=== PATIENT | female | born 1930 | race Caucasian/White ===

== ENCOUNTER 2017-03-15 18:37 | Observation (INO) | payer OTHER ==
--- NOTE | 2017-03-15 18:57 | PDOC ---
History of Present Illness <Clara Espinal - Last Filed: 03/15/17 23:12> - History of Present Illness Initial Comments: 03/15/17 23:51 Patient is an 86 year old female from [facility] with significant medical hx of multiple myeloma, paroxysmal AFib, GERD, CKD, and HTN who has been sent to the ED from [place] for blood transfusion. Patient was recently diagnosed with a left pathological fx, which she was operated on and found to have multiple myeloma. She was then transferred to [facility] for rehab and was noted to have a dropping Hb from 6.8 to 6.2. Per [place] papers, the patient was also complaining of generalized weakness. Denies any bleeding, melena, nausea, vomiting, constipation, or dysuria. <Deanna Perez - Last Filed: 03/16/17 00:01> - General Chief Complaint: Revisit, Lab Variance Stated Complaint: ABNORMAL BLOOD WORK Time Seen by Provider: 03/15/17 18:50 Past History - Past Medical History Anemia: Yes Cardiac Disorders: Yes (multiple myelomia praxoysmal a fib) GI Disorders: Yes (gerd) Disorders: Yes (chronic kidney disease) HTN: Yes - Psycho/Social/Smoking Cessation Hx Suicidal Ideation: No Smoking History: Never smoked Have you smoked in the past 12 months: No Information on smoking cessation initiated: No Hx Alcohol Use: No Drug/Substance Use Hx: No <Clara Espinal - Last Filed: 03/15/17 23:12> <Deanna Perez - Last Filed: 03/16/17 00:01> - Past Medical History Allergies/Adverse Reactions: Allergies Allergy/AdvReac Type Severity Reaction Status Date / Time No Known Allergies Allergy Verified 03/15/17 18:49 Home Medications: Ambulatory Orders Bisacodyl [Dulcolax -] 10 mg PO ONCE 03/15/17 Enoxaparin [Lovenox -] 40 mg SQ DAILY 03/15/17 Labetalol HCl [Normodyne -] 200 mg PO BID 03/15/17 Lidocaine 5% Patch [Lidoderm Patch -] 1 patch TP DAILY 03/15/17 Nystatin Ointment [Mycostatin Ointment -] 1 applic TP BID 03/15/17 Oxycodone HCl 10 mg PO Q4H 03/15/17 Oxycodone Sr [Oxycontin] 10 mg PO BID 03/15/17 Pantoprazole Sodium 40 mg PO DAILY 03/15/17 Sennosides [Senna] 8.6 mg PO HS 03/15/17 Silver Sulfadiazine 1% Top Cr [Silvadene -] 1 applic TP DAILY 03/15/17 Trazodone HCl 100 mg PO HS 03/15/17 Triamcinolone Acet 0.1% Cream [Aristocort] 0 gm TP BID 03/15/17 Review of Systems - Review of Systems Comments:: 03/15/17 23:54 CONSTITUTIONAL: Present: generalized weakness Absent: fever, chills, diaphoresis, malaise, loss of appetite HEENT: Absent: rhinorrhea, nasal congestion, throat pain, throat swelling, difficulty swallowing, mouth swelling, ear pain, eye pain, visual changes CARDIOVASCULAR: Absent: chest pain, syncope, palpitations, irregular heart rate, lightheadedness , peripheral edema RESPIRATORY: Absent: cough, shortness of breath, dyspnea with exertion, orthopnea, wheezing, stridor, hemoptysis GASTROINTESTINAL: Absent: abdominal pain, abdominal distension, nausea, vomiting, diarrhea, constipation, melena, hematochezia GENITOURINARY: Absent: dysuria, frequency, urgency, hesitancy, hematuria, flank pain, genital pain MUSCULOSKELETAL: Absent: myalgia, arthralgia, joint swelling SKIN: Absent: rash, itching, pallor HEMATOLOGIC/IMMUNOLOGIC: Absent: easy bleeding, easy bruising, lymphadenopathy, frequent infections ENDOCRINE: Absent: unexplained weight gain, unexplained weight loss, heat intolerance, cold intolerance NEUROLOGIC: Absent: headache, focal weakness or paresthesia, dizziness, unsteady gait, seizure, mental status changes, bladder or bowel incontinence. PSYCHIATRIC: Absent: anxiety, depression, suicidal or homicidal ideation, hallucinations <Deanna Perez - Last Filed: 03/16/17 00:01> *Physical Exam - Vital Signs Last Vital Signs Temp Pulse Resp BP Pulse Ox 98.9 F 88 20 100/52 97 03/15/17 18:49 03/15/17 18:49 03/15/17 18:49 03/15/17 18:49 03/15/17 18:49 <Clara Espinal - Last Filed: 03/15/17 23:12> - Vital Signs Last Vital Signs Temp Pulse Resp BP Pulse Ox 98 F 81 18 107/54 96 03/15/17 22:34 03/15/17 22:34 03/15/17 22:34 03/15/17 22:34 03/15/17 22:34 - Physical Exam Comments: 03/15/17 23:55 GENERAL: Well developed, well nourished. Awake and alert. No acute distress. HEENT: Normocephalic, atraumatic. PERRLA, EOMI. No conjunctival pallor. Sclera are non- icteric. Moist mucous membranes. Oropharynx is clear. NECK: Supple. Full ROM. No JVD. Carotid pulses 2+ and symmetric, without bruits. No thyromegaly. No lymphadenopathy. CARDIOVASCULAR: Regular rate and rhythm. No murmurs, rubs, or gallops. Distal pulses are 2+ and symmetric. PULMONARY: No evidence of respiratory distress. Lungs clear to auscultation bilaterally. No wheezing, rales or rhonchi. ABDOMINAL: Skinny abdomen. Soft. Non-tender. Non-distended. No rebound or guarding. No organomegaly. Normoactive bowel sounds. MUSCULOSKELETAL: Normal range of motion at all joints. No bony deformities or tenderness. No CVA tenderness. EXTREMITIES: Left hip incision. Minimal swelling to the left lower extremity but no pitting edema. No cyanosis. No clubbing. No calf tenderness. SKIN: Warm and dry. Normal capillary refill. No rashes. No jaundice. NEUROLOGICAL: Alert, awake, appropriate. Cranial nerves 2-12 intact. Normal speech. PSYCHIATRIC: Cooperative. Good eye contact. Appropriate mood and affect. <Deanna Perez - Last Filed: 03/16/17 00:01> Heart Score/ECG Review #1 03/16/17 00:00 Normal sinus rhythm at 85 bpm Normal ECG <Deanna Perez - Last Filed: 03/16/17 00:01> ED Treatment Course - LABORATORY CBC & Chemistry Diagram: 03/15/17 19:34 03/15/17 19:34 <Clara Espinal - Last Filed: 03/15/17 23:12> - LABORATORY CBC & Chemistry Diagram: 03/15/17 19:34 03/15/17 19:34 - ADDITIONAL ORDERS Additional order review: Laboratory Results 03/15/17 03/15/17 03/15/17 20:50 19:34 19:34 INR 1.09 Sodium Potassium Chloride Carbon Dioxide Anion Gap BUN Creatinine Creat Clearance w eGFR Random Glucose Calcium Total Bilirubin AST ALT Alkaline Phosphatase Creatine Kinase Troponin I Total Protein Albumin Blood Type A POSITIVE A POSITIVE Antibody Screen Negative Negative Crossmatch See Detail 03/15/17 03/15/17 19:34 19:34 INR Sodium 133 L Potassium 4.4 Chloride 97 L Carbon Dioxide 28 Anion Gap 8 BUN 36 H Creatinine 1.2 H Creat Clearance w eGFR 42.70 Random Glucose 133 H Calcium 8.9 Total Bilirubin 0.4 AST 67 H ALT 87 H Alkaline Phosphatase 334 H Creatine Kinase 39 Troponin I < 0.02 Total Protein 9.1 H Albumin 2.1 L Blood Type Antibody Screen Crossmatch 03/15/17 19:34 RBC 2.12 L MCV 91.0 MCHC 33.1 RDW 15.5 MPV 7.5 Neutrophils % 72.2 Lymphocytes % 16.8 Monocytes % 10.8 H Eosinophils % 0.0 Basophils % 0.2 - RADIOLOGY Radiograph Interpretation: 03/16/17 00:01 Chest X-Ray Impression: Cardiomegaly, mild congestion and bilateral pleural effusions. Reported By: Wally Montes MD <Deanna Perez - Last Filed: 03/16/17 00:01> Medical Decision Making - Medical Decision Making 03/15/17 23:08 86-year-old female was brought in by ambulance from [facility] for blood transfusion. Past medical history of hypertension, paroxysmal atrial fibrillation, chronic kidney disease, chronic low back pain History of present illness. She was recently diagnosed multiple myeloma found after she fell and had a left hip pathological fracture. 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 It was noted that she had progressively falling hemoglobin from this 6.8-6.2, and complain of generalized weakness but no distress. No nausea, no vomiting and no melena were appreciated. She currently is afebrile with stable vital signs. Her systolic blood pressure is between the 101 - 110 She has left leg edema. Surgical incisions are covered with dressing. Hemoglobin is 6.4. This patient has never been to our hospital have no prior labs on her for comparison I spoke with Dr. Rubén Lombardo and the patient will be admitted for blood transfusion of 2 units packed RBCs <Clara Espinal - Last Filed: 03/15/17 23:12> *DC/Admit/Observation/Transfer - Discharge Dispostion Admit: Yes <Clara Espinal - Last Filed: 03/15/17 23:12> - Attestations Scribe Attestion: 03/15/17 23:57 Documentation prepared by Deanna Perez, acting as medical assisting instructor for Clara Espinal MD. <Deanna Perez - Last Filed: 03/16/17 00:01> Diagnosis at time of Disposition: Anemia Qualifiers: Anemia type: unspecified type Qualified Code(s): D64.9 - Anemia, unspecified Multiple myeloma Qualifiers: Multiple myeloma remission status: not in remission Qualified Code(s): C90.00 - Multiple myeloma not having achieved remission Pathological fracture Qualifiers: Pathology associated with fracture: neoplastic disease Site of pathological fracture: hip Encounter type: sequela Laterality: left Qualified Code(s): M84.552S - Pathological fracture in neoplastic disease, left femur, sequela - Referrals
[2017-03-15 18:59] VITALS: BMI 22.6
[2017-03-15 19:55] LABS: INR 1.09 (0.82-1.09)
[2017-03-15 20:26] LABS: BASOPHIL 0.2 % (0-2.0); MCH 30.1 pg (25.7-33.7); MCHC 33.1 g/dl (32.0-36.0); MEAN PLT VOLUME 7.5 fl (7.5-11.1); NEUTROPHILS 72.2 % (42.8-82.8); PLATELET COUNT 282 K/MM3 (134-434); RDW 15.5 % (11.6-15.6); WHITE BLOOD COUNT 7.8 K/mm3 (4.0-10.0)
[2017-03-15 20:29] LABS: ALBUMIN 2.1 g/dl (3.4-5.0); BILIRUBIN,TOTAL 0.4 mg/dL (0.2-1.0); CALCIUM 8.9 mg/dL (8.5-10.1); COCKROFT - GAULT 32.3935; CREATININE 1.2 mg/dL (0.55-1.02); TOT PROT 9.1 g/dl (6.4-8.2)
[2017-03-15 20:33] LABS: TROPONIN I < 0.02 ng/ml (0.00-0.05)
[2017-03-16] MEDS ORDERED: morphine CARPU-JECT 2 MG/1 ML DISP.SYRIN IVPUSH ONE (04:22)
[2017-03-16] MEDS ORDERED: ONDANSETRON 4 MG/2 ML VIAL IVPUSH STA (04:22)
[2017-03-16] MEDS ORDERED: ONDANSETRON 4 MG/2 ML VIAL ONE (04:26)
[2017-03-16] MEDS ORDERED: morphine CARPU-JECT 2 MG/1 ML DISP.SYRIN ONE (04:26)
[2017-03-16] MEDS ORDERED: oxyCODONE HCL 5 MG TABLET PO PRN (08:35)
--- NOTE | 2017-03-16 08:37 | HP ---
Admitting History and Physical - Primary Care Physician PCP: Chris Pride - Admission Chief Complaint: anemia History of Present Illness: ER HISTORY - History of Present Illness Initial Comments: 03/15/17 23:51 Patient is an 86 year old female from [facility] with significant medical hx of multiple myeloma, paroxysmal AFib, GERD, CKD, and HTN who has been sent to the ED from [place] for blood transfusion. Patient was recently diagnosed with a left pathological fx, which she was operated on and found to have multiple myeloma. She was then transferred to [facility] for rehab and was noted to have a dropping Hb from 6.8 to 6.2. Per [place] papers, the patient was also complaining of generalized weakness. Denies any bleeding, melena, nausea, vomiting, constipation, or dysuria. Pt examined by me in ER s/p 2 units PRBc No complaints feels well no dizziness, lightheadedness, chest pain or palpitations History Source: Patient Limitations to Obtaining History: No Limitations - Past Medical History Cardiovascular: Yes: AFIB (paroxysmal), HTN Renal/: Yes: Renal Inusuff Heme/Onc: Yes: Anemia, Other (multiple myeloma) - Smoking History Smoking history: Never smoked Have you smoked in the past 12 months: No - Alcohol/Substance Use Hx Alcohol Use: No Home Medications - Allergies Allergies/Adverse Reactions: Allergies Allergy/AdvReac Type Severity Reaction Status Date / Time No Known Allergies Allergy Verified 03/15/17 18:49 - Home Medications Home Medications: Ambulatory Orders Bisacodyl [Bisacodyl -] 10 mg PO ONCE 03/15/17 Enoxaparin [Lovenox -] 40 mg SQ DAILY 03/15/17 Labetalol HCl [Normodyne -] 200 mg PO BID 03/15/17 Lidocaine 5% Patch [Lidoderm -] 1 patch TP DAILY 03/15/17 Nystatin Ointment [Mycostatin Ointment -] 1 applic TP BID 03/15/17 Oxycodone HCl 10 mg PO Q4H 03/15/17 Oxycodone Sr [Oxycontin] 10 mg PO BID 03/15/17 Pantoprazole Sodium 40 mg PO DAILY 03/15/17 Sennosides [Senna] 8.6 mg PO HS 03/15/17 Silver Sulfadiazine 1% Top Cr [Silvadene -] 1 applic TP DAILY 03/15/17 Trazodone HCl 100 mg PO HS 03/15/17 Triamcinolone Acet 0.1% Cream [Aristocort] 0 gm TP BID 03/15/17 Review of Systems - Review of Systems Constitutional: denies: Chills, Fever, Weakness Cardiovascular: denies: Chest Pain, Palpitations Gastrointestinal: denies: Abdominal Pain, Nausea Physical Examination Vital Signs: Vital Signs Temperature 97.8 F 03/16/17 02:25 Pulse Rate 85 03/16/17 07:35 Respiratory Rate 18 03/16/17 07:35 Blood Pressure 135/73 03/16/17 07:35 O2 Sat by Pulse Oximetry (%) 95 03/16/17 07:35 Constitutional: Yes: No Distress, Calm Cardiovascular: Yes: Regular Rate and Rhythm Respiratory: Yes: CTA Bilaterally Gastrointestinal: Yes: Normal Bowel Sounds, Soft. No: Distention, Tenderness Edema: No Psychiatric: Yes: Alert, Oriented Labs: Laboratory Results - last 24 hr 03/15/17 03/15/17 03/15/17 19:34 19:34 19:34 WBC 7.8 RBC 2.12 L Hgb 6.4 L* Hct 19.3 L MCV 91.0 MCHC 33.1 RDW 15.5 Plt Count 282 MPV 7.5 Neutrophils % 72.2 Lymphocytes % 16.8 Monocytes % 10.8 H Eosinophils % 0.0 Basophils % 0.2 INR Sodium 133 L Potassium 4.4 Chloride 97 L Carbon Dioxide 28 Anion Gap 8 BUN 36 H Creatinine 1.2 H Creat Clearance w eGFR 42.70 Random Glucose 133 H Calcium 8.9 Total Bilirubin 0.4 AST 67 H ALT 87 H Alkaline Phosphatase 334 H Creatine Kinase 39 Troponin I < 0.02 Total Protein 9.1 H Albumin 2.1 L Blood Type Antibody Screen Crossmatch 03/15/17 03/15/17 03/15/17 19:34 19:34 20:50 WBC RBC Hgb Hct MCV MCHC RDW Plt Count MPV Neutrophils % Lymphocytes % Monocytes % Eosinophils % Basophils % INR 1.09 Sodium Potassium Chloride Carbon Dioxide Anion Gap BUN Creatinine Creat Clearance w eGFR Random Glucose Calcium Total Bilirubin AST ALT Alkaline Phosphatase Creatine Kinase Troponin I Total Protein Albumin Blood Type A POSITIVE A POSITIVE Antibody Screen Negative Negative Crossmatch See Detail 03/16/17 11:00 WBC 9.0 RBC 3.02 L D Hgb 9.0 L D Hct 26.3 L D MCV 87.3 MCHC 34.4 RDW 15.6 Plt Count 287 MPV 7.0 L Neutrophils % Lymphocytes % Monocytes % Eosinophils % Basophils % INR Sodium Potassium Chloride Carbon Dioxide Anion Gap BUN Creatinine Creat Clearance w eGFR Random Glucose Calcium Total Bilirubin AST ALT Alkaline Phosphatase Creatine Kinase Troponin I Total Protein Albumin Blood Type Antibody Screen Crossmatch Imaging - Results Chest X-ray: Image Reviewed EKG: Image Reviewed (NSR) Problem List - Problems (1) Anemia Code(s): D64.9 - ANEMIA, UNSPECIFIED Qualifiers: Anemia type: unspecified type Qualified Code(s): D64.9 - Anemia, unspecified (2) Multiple myeloma Code(s): C90.00 - MULTIPLE MYELOMA NOT HAVING ACHIEVED REMISSION Qualifiers: Multiple myeloma remission status: not in remission Qualified Code(s): C90.00 - Multiple myeloma not having achieved remission Assessment/Plan PLAN S/p PRBC continue with meds admitted for observation- stable for dc back to [place]
[2017-03-16] MEDS ORDERED: NYSTATIN 100000 UNIT/GM TOPICAL OINTMENT 15 GM TUBE TP SCH (10:00)
[2017-03-16] MEDS ORDERED: LABETALOL HCL 200 MG TABLET (FP) PO SCH (10:00)
[2017-03-16] MEDS ORDERED: PANTOPRAZOLE 40 MG TABLET (FP) PO SCH (10:00)
[2017-03-16] MEDS ORDERED: LIDOCAINE 5% TOPICAL PATCH TP SCH (10:00)
[2017-03-16] MEDS ORDERED: SILVER SULFADIAZINE 1% TOP CREAM 50 GM JAR TP SCH (10:00)
--- NOTE | 2017-03-16 11:48 | EKG ---
Test Reason : Blood Pressure : / mmHG Vent. Rate : 085 BPM Atrial Rate : 085 BPM P-R Int : 182 ms QRS Dur : 086 ms QT Int : 364 ms P-R-T Axes : 071 -03 038 degrees QTc Int : 433 ms NORMAL SINUS RHYTHM NORMAL ECG NO PREVIOUS ECGS AVAILABLE Confirmed by ANGELINA HERNANDEZ, CHARU ([id number]) on 03/16/2017 11:48:28 AM Referred By: Confirmed By:CHARU ALFARO MD
[2017-03-16 12:16] LABS: MCHC 34.4 g/dl (32.0-36.0); MEAN CELL VOLUME 87.3 fl (80-96); PLATELET COUNT 287 K/MM3 (134-434); RDW 15.6 % (11.6-15.6)
--- NOTE | 2017-03-16 12:48 | DS ---
Physical Examination Vital Signs: Vital Signs Temperature 97.8 F 03/16/17 02:25 Pulse Rate 92 H 03/16/17 10:05 Respiratory Rate 16 03/16/17 10:05 Blood Pressure 129/74 03/16/17 10:05 O2 Sat by Pulse Oximetry (%) 96 03/16/17 10:05 Labs: CBC, BMP 03/16/17 11:00 Discharge Summary Reason For Visit: ANEMIA/MULTIPLE MYELOMA Current Active Problems Anemia (Acute) Multiple myeloma (Acute) Pathological fracture (Acute) Hospital Course: admitted for transfusion only-- s/p 2 units PRBC stable for dc back to [place] Condition: Good - Instructions Referrals: Chris Pride MD [Primary Care Provider] - Disposition: [facility] FACILITY - Home Medications Comprehensive Discharge Medication List: Ambulatory Orders Bisacodyl [Bisacodyl -] 10 mg PO ONCE 03/15/17 Enoxaparin [Lovenox -] 40 mg SQ DAILY 03/15/17 Labetalol HCl [Normodyne -] 200 mg PO BID 03/15/17 Lidocaine 5% Patch [Lidoderm -] 1 patch TP DAILY 03/15/17 Nystatin Ointment [Mycostatin Ointment -] 1 applic TP BID 03/15/17 Oxycodone HCl 10 mg PO Q4H 03/15/17 Oxycodone Sr [Oxycontin] 10 mg PO BID 03/15/17 Pantoprazole Sodium 40 mg PO DAILY 03/15/17 Sennosides [Senna] 8.6 mg PO HS 03/15/17 Silver Sulfadiazine 1% Top Cr [Silvadene -] 1 applic TP DAILY 03/15/17 Trazodone HCl 100 mg PO HS 03/15/17 Triamcinolone Acet 0.1% Cream [Aristocort] 0 gm TP BID 03/15/17
[2017-03-16 13:44] VITALS: BP 92/43; PULSE 86; TEMP 98
[2017-03-16] MEDS ORDERED: traZODone HCL 50 MG TABLET (FP) PO SCH (22:00)
[2017-03-16] MEDS ORDERED: SENNOSIDES 8.6MG TABLET (FP) PO SCH (22:00)
== END 2017-03-16 16:19 ==
LOC: JER 18:37 → UNDOADMOB 23:17 → INTOOBSV 23:17 → JERBED 23:17 → UNDOADMIN 23:43 → JERBED 03-16 08:36
PROVIDERS: ADMIT Internal Medicine; ATTEND Internal Medicine
PROC: 30233N1 Transfusion of Nonautologous Red Blood Cells into Peripheral Vein, Percutaneous Approach (ICD-10-PCS; principal; 2017-03-16)
PROC: 3E033GC Introduction of Other Therapeutic Substance into Peripheral Vein, Percutaneous Approach (ICD-10-PCS; 2017-03-16)
DX: D64.9 Anemia, unspecified (principal); C90.00 Multiple myeloma not having achieved remission; M84.552S Pathological fracture in neoplastic disease, left femur, sequela; I48.0 Paroxysmal atrial fibrillation; K21.9 Gastro-esophageal reflux disease without esophagitis; I12.9 Hypertensive chronic kidney disease with stage 1 through stage 4 chronic kidney disease, or unspecified chronic kidney disease; N18.9 Chronic kidney disease, unspecified
CPT/HCPCS: 36415; 36430; 36511; 71010-TC; 80053; 82550; 84484; 85025; 85027; 85610; 86850; 86900; 86901; 86922; 93005; 93010; 99285-25; G0378; P9038; P9058